=== PATIENT | female | born 1970 | race Caucasian/White ===

== ENCOUNTER → 2017-02-26 | Outpatient (REF) | payer OTHER ==
[~2017-02-26] MED LIST: CYCL10TA PO; MAXA10TA14 PO; PERC5TAB12 PO; SPIR50TA2 PO; TOPA100T12 PO; TRAZ50TA11 PO
[2017-02-26 17:37] LABS: LUTEINIZING HORMONE 3.4 mIU/mL; PROGESTERONE 1.4 NG/ML
[2017-02-26 17:38] LABS: ESTRADIOL 82.8 PG/ML; FOLLICLE STIMULATING HORMONE 9.1 mIU/mL
[2017-03-01 08:06] LABS: F8 ACTIVITY FOR F8 PANEL 67 % (57-163); F8 ACTIVITY vWB FOR F8 PANEL 77 % (50-200); F8 ANTIGEN FOR F8 PANEL 78 % (50-200); INTERPRETATION: Note (.)
[2017-03-02 00:07] LABS: ESTRONE SERUM 81 pg/mL (.); SEX HORMONE BINDING GLOBULIN 35.5 nmol/L (24.6-122.0)
== END ==
LOC: M LAB REF 16:24
PROVIDERS: ATTEND Obstetrics & Gynecology
DX: N92.1 Excessive and frequent menstruation with irregular cycle (principal); N95.9 Unspecified menopausal and perimenopausal disorder

== ENCOUNTER 2017-04-17 05:54 | Day surgery (SDC) | payer OTHER ==
[2017-04-17] VITALS (8 sets, daily range): BP systolic 100–129; BP diastolic 55–79
[~2017-04-17] VITALS: Ht 157.5 cm; Wt 74.8 kg
[~2017-04-17 05:54] MED LIST changes: -PERC5TAB12 PO; -TRAZ50TA11 PO
[2017-04-17] MEDS ORDERED: LR 1,000 ML IV ONE (06:00)
[2017-04-17] MEDS ORDERED: ACETAMINOPHEN 650 MG SUPP PR ONE (06:15)
[2017-04-17 06:42] LABS: MEAN CORPUSCULAR HGB CONC 34.3 g/dl (32.0-36.5); MEAN CORPUSCULAR VOLUME 87.5 fl (80.0-96.0); RED CELL DISTRIBUTION WIDTH 12.2 % (11.5-14.5); WHITE BLOOD COUNT 9.9 10^3/uL (4.0-10.0)
[2017-04-17] MEDS ORDERED: TRAZ50TA11 PO (06:52)
[2017-04-17 07:01] LABS: ANION GAP 8 MEQ/L (8-16); BLOOD UREA NITROGEN 15 MG/DL (7-18); CALCIUM LEVEL 9.1 MG/DL (8.5-10.1); CARBON DIOXIDE LEVEL 26 MEQ/L (21-32); CHLORIDE LEVEL 106 MEQ/L (98-107); CREATININE FOR GFR 0.83 MG/DL (0.55-1.02); GLOMERULAR FILTRATION RATE > 60.0 (>58); GLUCOSE, FASTING 95 MG/DL (70-105); POTASSIUM SERUM 3.8 MEQ/L (3.5-5.1); SODIUM LEVEL 140 MEQ/L (136-145)
[2017-04-17] MEDS ORDERED: ACETAMINOPHEN 650 MG SUPP As Ordered ONE (07:19)
[2017-04-17] MEDS ORDERED: VASOPRESSIN INJ 20 UNITS/ML VIAL As Ordered ONE (07:20)
[2017-04-17] MEDS ORDERED: ROCURONIUM BROMIDE 50 MG/5 ML VIAL/SYRINGE As Ordered ONE (08:43)
[2017-04-17] MEDS ORDERED: ePHEDrine SULFATE 25 MG/5 ML(5MG/ML) SYRINGE As Ordered ONE (08:43)
[2017-04-17] MEDS ORDERED: MIDAZOLAM INJ 2 MG/2 ML VIAL (J2250) As Ordered ONE (08:43)
[2017-04-17] MEDS ORDERED: LIDOCAINE 2% INJ 100 MG/5 ML SDV (FOR ANES.) As Ordered ONE (08:43)
[2017-04-17] MEDS ORDERED: NEOSTIGMINE 10 MG/10 ML VIAL (J2710) As Ordered ONE (08:43)
[2017-04-17] MEDS ORDERED: GLYCOPYRROLATE INJ 0.2 MG/ML 2 ML VIAL As Ordered ONE (08:43)
[2017-04-17] MEDS ORDERED: HYDROmorphone HCL 2 MG/ML 1ML VIAL (J1170) As Ordered ONE (08:43)
[2017-04-17] MEDS ORDERED: PROPOFOL 200 MG/20 ML VIAL As Ordered ONE (08:43)
[2017-04-17] MEDS ORDERED: dexameTHASONE 4 MG/ML 1ML VIAL (J1100) As Ordered ONE (08:43)
[2017-04-17] MEDS ORDERED: fentaNYL 100 MCG/2 ML INJECTION (J3010) As Ordered ONE (08:43)
[2017-04-17] MEDS ORDERED: ONDANSETRON 4MG/2ML VIAL (J2405) As Ordered ONE (08:43)
[2017-04-17] MEDS ORDERED: KETOROLAC 60 MG/2 ML VIAL (J1885) As Ordered ONE (08:43)
[2017-04-17] MEDS ORDERED: PERC5TAB12 PO ×2 (09:39→16:54)
[2017-04-17] MEDS ORDERED: PERCOCET 5MG/325MG TAB PO PRN (10:30)
[2017-04-17] MEDS ORDERED: ONDANSETRON 4MG/2ML VIAL (J2405) IV PRN ×2 (10:30→23:00)
[2017-04-17] MEDS ORDERED: fentaNYL 100 MCG/2 ML INJECTION (J3010) IV PRN (10:30)
[2017-04-17] MEDS ORDERED: MORPHINE 2 MG/ML 1ML SYRINGE IV PRN (10:30)
[2017-04-17] MEDS ORDERED: LR 1,000 ML IV SCH (10:30)
[2017-04-17] MEDS ORDERED: METOCLOPRAMIDE INJ 10MG/2ML VIAL (J2765) IV PRN (10:30)
[2017-04-17] MEDS: LR 1,000 ML IV SCH ×2 (11:00→19:36)
[2017-04-17] MEDS: PERCOCET 5MG/325MG TAB PO PRN ×3 (11:50→20:54)
[2017-04-17] MEDS ORDERED: IBUPROFEN 800 MG TAB PO SCH (12:00)
--- NOTE | 2017-04-17 12:56 | RO ---
DATE OF PROCEDURE: 04/17/2017 PREOPERATIVE DIAGNOSES: 1. Menometrorrhagia. 2. Dysmenorrhea. POSTOPERATIVE DIAGNOSES: 1. Menometrorrhagia. 2. Dysmenorrhea. PROCEDURE: 1. Total vaginal hysterectomy. 2. Bilateral salpingectomy. SURGEON: Rolando Walsh DO REPAIRER SHOE STICKS: Beverly Lopez NP ANESTHESIA: General. Graciela is a 46-year-old female with extensive dysmenorrhea. After extensive counseling in the office a decision was made to proceed with a total vaginal hysterectomy, removal of both tube, possible cystoscopy. COMPLICATION: None. ESTIMATED BLOOD LOSS: 150 mL. FINDING: Normal-appearing uterus and fallopian tube. Bilateral ovaries were visualized and felt to be within normal limit. DESCRIPTION OF PROCEDURE: After visiting with the patient in the preoperative area and reaffirming informed consent, she was then taken back to the operating room where general anesthetic was found to be adequate. She was then draped and prepped in usual sterile fashion in dorsal lithotomy position. At this point, a Connors catheter was placed in the bladder for drainage. We then placed a weighted speculum in the posterior fornix of the vagina. Using a Elder retractor, the anterior and posterior lip of the cervix were then grasped with 2 [facility] clamp. The cervix was infiltrated with Pitressin in a circumferential manner. At this point, using the Bovie, a circumferential incision was made over the cervix. The anterior and posterior cul-de-sac were then entered. We then placed a Lala clamp at the level of the uterosacral ligament. This was clamped, cut and suture ligated using #0 Vicryl sutures. These sutures were left in place for closure of the vaginal cuff. We then take serial bites to include the uterine artery, the utero-ovarian ligament. These were clamped, cut and suture ligated using #0 Vicryl suture. The opposite side was done in similar fashion. At this point, the utero-ovarian ligament was clamped, cut and suture ligated using #0 Vicryl suture and the uterus and cervix was removed and sent to pathology. The ovaries and the fallopian tubes were identified. The fallopian tube was held with Sammie A Lala clamp was placed on the end of the fallopian tube and the fallopian tube was transected and the tube was sent to pathology for final diagnosis. The stump was then suture ligated using #0 Vicryl suture. The opposite side was done in similar fashion. Good hemostasis noted. Both ovaries appeared to be within normal limit. At this point, attention turned to the uterosacral ligaments, which were both imbricated to the posterior cul-de-sac using #0 Vicryl suture. This was done to obliterate the posterior cul-de-sac. Then, the peritoneum was identified and in a circumferential manner the peritoneal cavity was closed using #2-0 Vicryl suture after closure of the perineal cavity. The sutures that were left at the level of the uterosacral ligament was then used to close the vaginal cuff in two separate segment. A piece of Surgicel was oversewn in the vaginal cuff for good hemostasis. Excellent hemostasis noted. All instruments were removed. Patient tolerated procedure well. She was then transferred to recovery room in stable condition.
[2017-04-17] MEDS: SIMETHICONE 80 MG CHEW TAB PO SCH ×2 (14:08→20:55)
[2017-04-17] MEDS: IBUPROFEN 800 MG TAB PO SCH ×2 (14:09→20:55)
[2017-04-17] MEDS ORDERED: ONDANSETRON 4MG/2ML VIAL (J2405) IV ONE (17:00)
[2017-04-17] MEDS ORDERED: NS 400 ML IV SCH (17:00)
[2017-04-18] VITALS: BP 124/72
[2017-04-18] MEDS: SIMETHICONE 80 MG CHEW TAB PO SCH ×2 (01:10→05:48)
[2017-04-18] MEDS: PERCOCET 5MG/325MG TAB PO PRN ×2 (01:10→05:48)
[2017-04-18] MEDS: LR 1,000 ML IV SCH (03:02)
[2017-04-18] MEDS: IBUPROFEN 800 MG TAB PO SCH ×2 (03:03→08:21)
[2017-04-18 04:00] VITALS: BP 118/62
[2017-04-18 07:27] LABS: MEAN CORPUSCULAR HEMOGLOBIN 30.2 pg (27.0-33.0); MEAN CORPUSCULAR HGB CONC 33.9 g/dl (32.0-36.5); MEAN CORPUSCULAR VOLUME 89.1 fl (80.0-96.0); RED CELL DISTRIBUTION WIDTH 12.4 % (11.5-14.5); WHITE BLOOD COUNT 14.6 10^3/uL (4.0-10.0)
[2017-04-18 07:36] LABS: ANION GAP 6 MEQ/L (8-16); BLOOD UREA NITROGEN 9 MG/DL (7-18); CALCIUM LEVEL 8.1 MG/DL (8.5-10.1); CARBON DIOXIDE LEVEL 26 MEQ/L (21-32); CHLORIDE LEVEL 110 MEQ/L (98-107); CREATININE FOR GFR 0.75 MG/DL (0.55-1.02); GLOMERULAR FILTRATION RATE > 60.0 (>58); GLUCOSE, FASTING 108 MG/DL (70-105); POTASSIUM SERUM 3.7 MEQ/L (3.5-5.1); SODIUM LEVEL 142 MEQ/L (136-145)
[2017-04-18 08:20] VITALS: BP 117/58
== END 2017-04-18 11:50 | disposition home or self-care (01) ==
LOC: M SDC 05:54 → M PED 10:48 → M SDC 04-18 11:50
PROVIDERS: ATTEND Obstetrics & Gynecology
DX: N92.0 Excessive and frequent menstruation with regular cycle (principal); N94.6 Dysmenorrhea, unspecified; M54.5 Low back pain; Z87.891 Personal history of nicotine dependence; Z88.0 Allergy status to penicillin; Z79.899 Other long term (current) drug therapy
CPT/HCPCS: 36415; 58262; 80048; 85027; 86850; 86900; 86901; 88307; 96374; 96376; J0690; J1100; J1170; J1885; J2250; J2405; J2710; J3010